=== PATIENT | male | born 1990 | race Caucasian/White ===

== ENCOUNTER 2019-07-15 17:33 | Emergency (ER) | payer BC ==
[~2019-07-15] VITALS: Ht 172.7 cm; Wt 79.8 kg
[2019-07-15 17:43] VITALS: BP_SYST 123
--- NOTE | 2019-07-15 18:16 | NUR ---
Patient to ER bed 03 to gown for evaluation. Side rails up.
--- NOTE | 2019-07-15 18:17 | NUR ---
Patient AAO x 4 ambulates to ER bed 03 with complaints of cough, congestion, and 4/10 body aches x 2 weeks. Was seen at [facility] x 2 days ago and was prescribed Augmentin, Promethazine, and Tylenol. Even chest rise and fall with respirations. Will continue to monitor.
[2019-07-15 18:18] VITALS: BP_SYST 120
--- NOTE | 2019-07-15 18:18 | NUR ---
ER Dr. Rodriguez at bedside examining patient.
--- NOTE | 2019-07-15 18:18 | NUR ---
Patient given written and verbal discharge instructions and verbalizes understanding. ER MD Dr. Rodriguez discussed with patient the results and treatment provided. Patient in stable condition. ID arm band removed. No Rx given. Patient educated on pain management and to follow up with PMD. Pain Scale 4/10. Opportunity for questions provided and answered. Medication side effect fact sheet provided.
== END 2019-07-15 18:18 | disposition home or self-care (01) ==
LOC: SED 17:33
DX: J06.9 Acute upper respiratory infection, unspecified (principal); F17.290 Nicotine dependence, other tobacco product, uncomplicated; Z71.6 Tobacco abuse counseling
CPT/HCPCS: 99281